=== PATIENT | female | born 1970 | race Caucasian/White ===

== ENCOUNTER 2020-01-27 22:55 | Emergency (ER) | payer MEDICAID, SELFPAY ==
[2020-01-27 23:05] VITALS: BP 132/76; PULSE 98; RESP 18; TEMP 36.4; O2SAT 98; BMI 31.6
--- NOTE | 2020-01-27 23:06 | W.ED.LOWEXIN ---
HPI - Extremity Injury (Lower) General: Chief Complaint: Extremity Injury, Lower Stated Complaint: ankle pain Time Seen by Provider: 01/27/20 23:06 Source: patient Mode of arrival: ambulatory Limitations: no limitations History of Present Illness: HPI Narrative: Patient presents today with complaints of left ankle pain. Patient states that she has a history of injury to the ankle with surgical repair. Patient denies any new injury. Patient does have a cellulitis/abscess to the calf of the same leg that is healing. Patient appears well. Patient appears in no acute distress. Review of Systems General: Reports: 10 or more systems reviewed and unremarkable except in HPI and below Musc: Reports: joint pain (Left ankle) PFSH ED PFSH: Social History Smoking and tobacco status: current every day smoker Physical Exam Const: COMMON NORMALS: no acute distress and patient oriented x3 GENERAL APPEARANCE: cooperative HENMT: COMMON NORMALS: normocephalic, TM's normal bilaterally and Normal external nose present HEAD & SCALP: normal to inspection and normocephalic NOSE: Normal external nose present TYMPANIC MEMBRANE: TM's normal bilaterally MOUTH: Normal oral and palatal mucosa present THROAT: posterior oropharynx normal Eye: GENERAL EYE: appearance normal, both eyes and all related structures Neck/C-Spine: COMMON NORMALS: full ROM Lymph: LYMPHATIC: no lymphadenopathy noted Chest: COMMONS NORMALS: normal inspection of the chest Resp: COMMON NORMALS: normal respiratory effort EFFORT & INSPECTION: Yes able to speak in complete sentences Cardio: COMMON NORMALS: regular rate and regular rhythm RATE: regular rate RHYTHM: regular rhythm GI: COMMON NORMALS: non-tender : COMMON NORMALS: Yes no CVA tenderness BLADDER/KIDNEY EXAM: Yes no CVA tenderness Back/Pelvis: COMMON NORMALS: no CVA tenderness and thoracic and lumbar spine normal to inspection Extremity: NARRATIVE EXTREMITY EXAM: Left ankle has minimal swelling. Ankle has minimal dorsal flexion probably due to previous surgery repair. Pulses are intact. Capillary refill is intact. Neuro: COMMON NORMALS: patient oriented x3 and moves all extremities Psych: COMMON NORMALS: mental status grossly normal and cooperative Skin: NARRATIVE SKIN EXAM: Patient has some discoloration with an ulcer to the left calf. No significant redness is noted, no redness or heat is from the wound area. Ulcer is approximately 1 cm. Course Vital Signs: Vital signs: Vital Signs Temperature 97.6 F 01/27/20 23:05 Pulse Rate 77 01/27/20 23:48 Respiratory Rate 17 01/27/20 23:48 Blood Pressure 146/54 01/27/20 23:48 Pulse Oximetry 98 01/27/20 23:48 MDM - Extremity Injury (Lower) MDM Narrative: Medical decision making narrative: Patient comes in today for complaints of pain and swelling to the left ankle. Exam noted some mild swelling to the left ankle. Reduced range of motion is noted probably due to the previous repair of bimalleolar fracture. Pulses were intact. Differential diagnosis includes but not limited to osteoarthritis, osteomyelitis, sprain, fracture. X-ray noted no fracture or dislocation and surgical hardware appeared in good alignment. Reviewed exam with patient with recommendations for treatment and follow-up. Patient reported understanding and agreed to plan. Discharge Plan Discharge Patient Disposition: Home, Self-Care Clinical Impression: Arthritis of ankle, left, degenerative Qualifiers: Osteoarthritis type: post-traumatic Qualified Code(s): M19.172 - Post-traumatic osteoarthritis, left ankle and foot Condition: Stable Prescriptions: New meloxicam 15 mg tablet 15 mg PO DAILY Qty: 10 RF: 0 Discharge Orders: Discharge Order (Routine); Ordered 01/27/20 Ordered By: Herbert Watkins Discharge Diet: Usual diet Discharge Activity: Increase activity as tolerated Patient Instructions: Osteoarthritis (ED) Activity Restrictions/Additional Instructions: Activity as tolerated. Use meloxicam daily as directed. Use acetaminophen for further pain relief. Drink plenty of water with medications. Follow-up with primary care in 1 week. Return to the ER for worsening pain, swelling, or fever. Discharge Date/Time: 01/27/20 23:50 Coding Level of Care Code ED Technical Support Representative for Corrine Fwd Exam Comprehensive
--- NOTE | 2020-01-27 23:10 | XR_ITS ---
WS: [id number] LEFT ANKLE: 3 VIEW(S) TECHNIQUE: AP, oblique(s) and lateral. HISTORY: pain COMPARISON: None available. Bimalleolar plates and screw fixation of healed fractures. No fractures involving the plates. No prio r studies to evaluate for change in position of the screws. The hooks of the medial malleolus and rolanda te do extend into the tibiotalar joint space. Moderate narrowing of the tibiotalar joint space. Small joint effusion. XR/XR ankle LT min 3V* [id number] IMPRESSION: 1. Status post remote bimalleolar ORIF with no new fracture. No hardware failu re identified. No prior studies for evaluation of subtle change. 2. Moderate posttraumatic arthritis at the tibiotalar joint space. 3. Small joint effusion.
[2020-01-27] MEDS: naproxen 500 mg Tablet PO (23:45)
[2020-01-27 23:48] VITALS: BP 146/54; PULSE 77; RESP 17; O2SAT 98
== END 2020-01-27 23:50 | disposition home or self-care (01) ==
PROVIDERS: Emergency Provider Nurse Practitioner Family
DX: M19.172 Post-traumatic osteoarthritis, left ankle and foot (principal); F17.210 Nicotine dependence, cigarettes, uncomplicated
CPT/HCPCS: 12345; 73610; 99281; 99283